=== PATIENT | female | born 2000 | race Caucasian/White ===

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

== ENCOUNTER 2019-01-05 06:42 | Emergency (ER) | payer OTHER ==
[~2019-01-05] VITALS: Ht 154.9 cm; Wt 56.7 kg
[~2019-01-05 06:42] MED LIST changes: +AIRBORNE EFFER1 EACH PO; +IBUPROFEN600 MG PO
[2019-01-05] MEDS ORDERED: ZITHROMAX TRI-500 MG (07:06)
== END 2019-01-05 15:48 | disposition home or self-care (01) ==
LOC: ER 06:42
DX: K06.8 Other specified disorders of gingiva and edentulous alveolar ridge (principal)

== ENCOUNTER 2019-08-09 10:33 | Emergency (ER) | payer OTHER ==
[~2019-08-09] VITALS: Ht 157.5 cm; Wt 57.2 kg
[~2019-08-09 10:33] MED LIST changes: +ZITHROMAX TRI-500 MG
== END 2019-08-09 12:13 | disposition home or self-care (01) ==
LOC: ER 10:33
DX: S60.111A Contusion of right thumb with damage to nail, initial encounter (principal); W23.0XXA Caught, crushed, jammed, or pinched between moving objects, initial encounter; Y93.89 Activity, other specified; Y92.810 Car as the place of occurrence of the external cause; Y99.8 Other external cause status

== ENCOUNTER 2019-10-14 13:36 | Emergency (ER) | payer OTHER ==
[~2019-10-14] VITALS: Ht 154.9 cm; Wt 54.4 kg
[2019-10-14] MEDS ORDERED: MYCO NAIL30 ML TOP (14:34)
== END 2019-10-14 15:03 | disposition home or self-care (01) ==
LOC: ER 13:36
DX: S60.1 Contusion of finger with damage to nail (principal); W23.0XXS Caught, crushed, jammed, or pinched between moving objects, sequela

== ENCOUNTER 2020-01-03 07:48 | Emergency (ER) | payer OTHER ==
[~2020-01-03] VITALS: Ht 154.9 cm; Wt 57.2 kg
[~2020-01-03 07:48] MED LIST changes: +MYCO NAIL30 ML TOP
[2020-01-03] MEDS ORDERED: LARISSIA-28 TA1 EACH (07:55)
[2020-01-03] MEDS ORDERED: KETO10TA2 PO (10:40)
== END 2020-01-03 10:50 ==
LOC: ER 07:48
DX: N94.4 Primary dysmenorrhea (principal)

== ENCOUNTER 2020-05-16 06:18 | Emergency (ER) | payer OTHER ==
[~2020-05-16] VITALS: Ht 154.9 cm; Wt 54.4 kg
[~2020-05-16 06:18] MED LIST changes: +LARISSIA-28 TA1 EACH
== END 2020-05-16 09:13 | disposition home or self-care (01) ==
LOC: ER 06:18
DX: R10.13 Epigastric pain (principal); N80.8 Other endometriosis; Z20.822 Contact with and (suspected) exposure to COVID-19

== ENCOUNTER 2020-09-20 11:51 | Emergency (ER) | payer OTHER ==
[~2020-09-20] VITALS: Ht 154.9 cm; Wt 54.4 kg
[2020-09-20] MEDS ORDERED: KETO10TA2 PO (13:02)
[2020-09-20] MEDS ORDERED: ZITHROMAX TRI-500 MG PO (13:02)
[2020-09-20] MEDS ORDERED: TYLENOL ARTHRI650 MG (13:12)
== END 2020-09-20 13:43 | disposition home or self-care (01) ==
LOC: ER 11:51
DX: J06.9 Acute upper respiratory infection, unspecified (principal); H92.03 Otalgia, bilateral

== ENCOUNTER 2021-01-19 08:00 | Outpatient (CLI) | payer OTHER ==
[~2021-01-19 08:00] MED LIST changes: +TYLENOL ARTHRI650 MG; +ZITHROMAX TRI-500 MG PO
== END 2021-01-19 08:30 | disposition home or self-care (01) ==
LOC: PPH VACUNA 08:00
PROVIDERS: ATTEND Emergency Medicine Pediatric Emergency Medicine
DX: Z23 Encounter for immunization (principal)

== ENCOUNTER 2021-02-25 09:00 | Outpatient (CLI) | payer OTHER | END 2021-02-25 09:30 | disposition home or self-care (01) | LOC: PPH VACUNA 09:00 | PROVIDERS: ATTEND Emergency Medicine Pediatric Emergency Medicine | DX: Z23 Encounter for immunization (principal) ==

== ENCOUNTER 2021-12-15 08:00 | Outpatient (CLI) | payer OTHER | END 2021-12-15 08:05 | disposition home or self-care (01) | LOC: PPH VACUNA 08:00 | PROVIDERS: ATTEND Emergency Medicine Pediatric Emergency Medicine | DX: Z23 Encounter for immunization (principal) ==

== ENCOUNTER → 2022-12-15 | Outpatient (CLI) | payer OTHER | END | disposition home or self-care (01) | LOC: PPH VACUNA | PROVIDERS: ATTEND Emergency Medicine Pediatric Emergency Medicine | DX: Z23 Encounter for immunization (principal) ==

== ENCOUNTER 2023-03-11 17:39 | Emergency (ER) | payer OTHER ==
[~2023-03-11] VITALS: Ht 154.9 cm; Wt 49.9 kg
[2023-03-11 20:16] LABS: BILIRUBIN TOTAL 1.58 mg/dL (0.3-1.2); CALCIUM 9.8 mg/dL (8.5-10.1); CREATININE SERUM 0.8 mg/dL (0.55-1.02); GFR 88.89; GLOBULINA 3.8 G/DL (2.4-3.5); POTASSIUM 3.81 mEq/L (3.5-5.1); TOTAL PROTEIN 7.8 gm/dL (6.4-8.2)
[2023-03-11 20:38] LABS: HEMATOCRIT 40.3 % (36.0-45.00); HEMOGLOBIN 12.5 g/dL (12.0-15.00); MEAN CELL VOLUME 76.7 fL (80.00-100.00); MEAN CORPUSCULAR HEMOGLOBIN 23.7 pg (27.00-32.0); MEAN CORPUSCULAR HGB CONC 30.9 g/dl (32.0-36.0); PLATELET COUNT 211 K/uL (150-450); RED BLOOD COUNT 5.26 M/uL (4.00-6.00); RED CELL DISTRIBUTION WIDTH 13.8 % (11.5-14.5)
== END 2023-03-11 22:49 | disposition home or self-care (01) ==
LOC: ER 17:40
PROVIDERS: General Practice
DX: K52.89 Other specified noninfective gastroenteritis and colitis (principal)

== ENCOUNTER → 2024-09-02 | Emergency (ER) | payer OTHER ==
[~2024-09-02] VITALS: Ht 154.9 cm; Wt 52.2 kg
[~2024-09-02] MED LIST changes: +0.9 % SODIUM CHLORIDE 1,000 ML IV ONE; +AZITHROMYCIN500 MG PO; +CEFTRIAXONE SODIUM 1,000 MG VIAL IV ONE; +FAMOtidine 10 MG/ML (4ML VIAL) IV ONE; +MEDROLPACK PO; +METHYLPREDNISOLONE SOD SUCC 125 MG VIAL IV ONE; +PEPCID AC20 MG PO
[2024-09-02 08:57] LABS: BASO % 0.4 % (0.1-1.2); EOS # 0.22 (0.04-0.54); EOS % 1.5 % (0.7-7.0); HEMATOCRIT 42.5 % (34.1-44.9); HEMOGLOBIN 13.1 g/dL (11.2-15.7); LYMPH # 1.83 (1.18-3.74); LYMPH % 12.2 % (19.3-53.1); MEAN CORPUSCULAR HEMOGLOBIN 23.6 pg (25.6-32.2); MONO % 5.4 % (4.7-12.5); NEUT # 11.99 (1.56-6.13); NEUT % 80.2 % (34.0-71.1); PLATELET COUNT 227 K/uL (163-369); RED BLOOD COUNT 5.56 M/uL (3.93-5.22); RED CELL DISTRIBUTION WIDTH 13.9 % (11.6-14.4)
[2024-09-02 09:34] LABS: COVID-19 AG NEGATIVE (NEGATIVE); INFLUENZA A AG NEGATIVE (NEGATIVE)
[2024-09-02 10:18] LABS: ALBUMIN 4.1 gm/dL (3.4-5.0); BILIRUBIN TOTAL 1.42 mg/dL (0.3-1.2); CALCIUM 9.2 mg/dL (8.5-10.1); CREATININE SERUM 0.68 mg/dL (0.55-1.02); GFR 105.42; GLOBULINA 3.5 G/DL (2.4-3.5); POTASSIUM 4.04 mEq/L (3.5-5.1); TOTAL PROTEIN 7.6 gm/dL (6.4-8.2)
== END | disposition home or self-care (01) ==
LOC: ER 06:43
PROVIDERS: General Practice
DX: J02.9 Acute pharyngitis, unspecified (principal); Z20.822 Contact with and (suspected) exposure to COVID-19

== ENCOUNTER 2024-10-10 13:45 | Outpatient (CLI) | payer OTHER ==
[~2024-10-10 13:45] MED LIST changes: -0.9 % SODIUM CHLORIDE 1,000 ML IV ONE; -CEFTRIAXONE SODIUM 1,000 MG VIAL IV ONE; -FAMOtidine 10 MG/ML (4ML VIAL) IV ONE; -METHYLPREDNISOLONE SOD SUCC 125 MG VIAL IV ONE
== END 2024-10-10 13:55 | disposition home or self-care (01) ==
LOC: PPH VACUNA 13:45
PROVIDERS: ATTEND Emergency Medicine Pediatric Emergency Medicine
DX: Z23 Encounter for immunization (principal)